=== PATIENT | male | born 1940 | race Caucasian/White ===

== ENCOUNTER → 2017-03-15 | Outpatient (CLI) | payer MEDICARE, OTHER ==
[~2017-03-15] MED LIST: ADVIL200 MG PO; COLACE100 MG PO; CORDARONE,PACE200 MG PO; ELIQUIS5 MG PO; GAVISCON ES TA1 EACH PO; K-TAB 10MEQ10 MEQ PO; LIPITOR40 MG PO; MIRALAX17 GM PO; NORCO 5-325 TA1 EACH PO; PROTONIX40 MG PO; TAGAMET HB200 MG PO; TYLENOL EXTRA500 MG PO; [UNRECOGNIZED DRUG - CODE] PO
== END | disposition disaster alternative care site (69) ==
LOC: GRAD 09:34
DX: M79.651 Pain in right thigh (principal); M25.551 Pain in right hip; Z96.641 Presence of right artificial hip joint; R93.7 Abnormal findings on diagnostic imaging of other parts of musculoskeletal system
CPT/HCPCS: A9503

== ENCOUNTER → 2017-04-06 | Day surgery (SDC) | payer MEDICARE, OTHER ==
[~2017-04-06] VITALS: Ht 185.4 cm; Wt 85.9 kg
--- NOTE | ~2017-04-06 | OR ---
PATIENT'S NAME: STEPHANIE AVILA [facility] AGE: 76 Y [address] ROOM: [place] [id number] LOCATION: [facility] [place] ADMIT DATE: 04/06/2017 OR/Procedure Report DISCHARGE DATE: FAMILY PHYSICIAN: KENDY SPEAR MD ([facility]) ATTENDING PHYSICIAN: KENDY LEOS SURGEON: Vin Adams CRNA BUTTER GRADER: DATE OF PROCEDURE: 04/06/2017 PROCEDURE: Right femoral nerve injection. DESCRIPTION OF PROCEDURE: The patient was identified in [facility] and risks and benefits of the procedure were discussed and accepted by the patient. The patient was in the supine position and the right femoral nerve was identified via ultrasound. A 1 mL Xylocaine skin wheal was given, and the right femoral nerve was identified with the nerve stimulator down to 0.3 milliamps. At that time, 1 mL of 1% Xylocaine, 6 mL of preservative-free normal saline, and 80 mg of Depo-Medrol was injected. Positive QUIANA test noted. The patient was then instructed to use knee immobilizer from home for the rest of the day. The patient was also instructed to utilize walker throughout the day. The patient's spouse was also instructed to help ambulate with assistance for the rest of the day. Extra risks including quadriceps muscle weakness was explained and accepted by the patient. The patient was instructed to call me personally if quadriceps muscle weakening remained through the night and into the morning. The patient was then instructed to follow up with Dr. Leos for any appointment necessary following this injection. The patient was without complaints throughout the procedure, was in the recovery area for approximately 20 minutes and discharged. VIN ADAMS CRNA BLH/modl /[id number] d: t: 04/10/17 0835, OPERATIVE SUMMARY
== END ==
LOC: GPOC 03-30 15:00 → GSDC 04-04 13:00
PROC: 3E0T3BZ Introduction of Anesthetic Agent into Peripheral Nerves and Plexi, Percutaneous Approach (ICD-10-PCS; principal; 2017-04-06)
PROC: 3E0T33Z Introduction of Anti-inflammatory into Peripheral Nerves and Plexi, Percutaneous Approach (ICD-10-PCS; 2017-04-06)
DX: G57.21 Lesion of femoral nerve, right lower limb (principal); I48.91 Unspecified atrial fibrillation; E78.00 Pure hypercholesterolemia, unspecified; Z96.641 Presence of right artificial hip joint; Z98.890 Other specified postprocedural states
CPT/HCPCS: J1040